=== PATIENT | female | born 1990 | race Caucasian/White ===

== ENCOUNTER 2020-05-18 22:11 | Emergency (ER) | payer MEDICAID ==
[~2020-05-18] VITALS: Ht 152.4 cm; Wt 66.2 kg
[2020-05-18 22:40] VITALS: BP 103/60
--- NOTE | 2020-05-18 22:40 | NUR ---
TO TENT # 03 AMBULATORY
--- NOTE | 2020-05-18 23:20 | NUR ---
SEEN AND EXAMINED BY CLYDE WITH ORDERS AND CARRIED OUT.
[2020-05-18] MEDS ORDERED: ACETAMINOPHEN EXTRA STRENGTH 500 MG TAB PO ONE (23:25)
--- NOTE | 2020-05-19 | NUR ---
SWABS DONE AND SENT TO LAB
--- NOTE | 2020-05-19 00:03 | NUR ---
MEDICATED PER ERMDS ORDER, PATIENT TOLERATED WELL.
[2020-05-19 01:30] VITALS: BP 106/74
--- NOTE | 2020-05-19 01:30 | NUR ---
Patient discharged with v/s stable. Written and verbal after care instructions given and explained. Patient verbalized understanding. Ambulatory with steady gait. All questions addressed prior to discharge. Advised to follow up with PMD.
== END 2020-05-19 01:30 | disposition home or self-care (01) ==
LOC: MED 22:11
DX: R51.9 Headache, unspecified (principal); Z20.828 Contact with and (suspected) exposure to other viral communicable diseases; R05 Cough; J02.9 Acute pharyngitis, unspecified
CPT/HCPCS: 99283; U0003; 99282

== ENCOUNTER 2020-09-24 09:31 | Emergency (ER) | payer MEDICAID ==
[~2020-09-24] VITALS: Ht 149.9 cm; Wt 67.1 kg
[2020-09-24 09:37] VITALS: BP 122/56
--- NOTE | 2020-09-24 09:45 | NUR ---
AMBULATED TO BED 10 WITH STEADY GAIT
--- NOTE | 2020-09-24 09:51 | NUR ---
Dr. Rascon is evaluating the patient at bedside.
--- NOTE | 2020-09-24 09:58 | NUR ---
30 Y/O FEMALE C/O NONPRODUCTIVE COUGH, FEVER,SORE THROAT,ZAMAN X 3 DAYS. ORAL TEMP 99 AT THIS TIME. PT RATES PAIN 8/10. PT DENIES EXPOSURE TO COVID. PT A/O X4 WITH EVEN AND UNLABORED RESPIRATIONS. PT SITTING IN CHAIR IN ROOM. PT IS MOLDOV[place] SPEAKING PMH: DENIES NKDA
--- NOTE | 2020-09-24 10:11 | NUR ---
Jolene sullivan in [facility] - 09/24/20 at 1014 by [email or web address] [place] BOWEN SAMPLE COLLECTED AND WALKED TO LAB
--- NOTE | 2020-09-24 10:11 | NUR ---
PAR[place] NOVEL SAMPLE COLLECTED AND WALKED TO LAB
[2020-09-24 10:43] VITALS: BP 122/56
== END 2020-09-24 10:38 | disposition home or self-care (01) ==
LOC: MED 09:31
DX: B34.9 Viral infection, unspecified (principal); Z20.822 Contact with and (suspected) exposure to COVID-19
CPT/HCPCS: 99283; U0003